=== PATIENT | female | born 1995 | race Caucasian/White ===

== ENCOUNTER 2018-12-25 14:05 | Emergency (ER) | payer OTHER ==
[2018-12-25 14:16] VITALS: BP 104/86
--- NOTE | 2018-12-25 15:02 | EDPHY ---
H & P Stated Complaint: left calf pain started yesterday, denies trauma, factor 5 hx Time Seen by Provider: 12/25/18 14:29 HPI/ROS: CHIEF COMPLAINT: Calf pain HISTORY OF PRESENT ILLNESS: Patient is a 23-year-old female who comes to the emergency department complaining of left-sided calf pain that began yesterday. She was concerned for DVT because she has history factor 5 Leiden deficiency. It runs in her family. She has never had DVTs before. No recent travel or injury. No visible swelling or bruising. She does notice some mild pain yesterday. She denies any injuries. No weakness or numbness. It is in left calf. Does not extend to her knee. Severity: Mild Modifying factors: Worsened by palpation or calf flexion REVIEW OF SYSTEMS: Constitutional: denies: chills, fever, recent illness, recent injury EENTM: denies: blurred vision, double vision, nose congestion Respiratory: denies: cough, shortness of breath Cardiac: denies: chest pain, irregular heart rate, lightheadedness, palpitations Gastrointestinal/Abdominal: denies: abdominal pain, diarrhea, nausea, vomiting, blood streaked stools Genitourinary: denies: dysuria, frequency, hematuria, pain Musculoskeletal: See HPI Skin: denies: lesions, rash, jaundice, bruising Neurological: denies: headache, numbness, paresthesia, tingling, dizziness, weakness Hematologic/Lymphatic: denies: blood clots, easy bleeding, easy bruising Immunologic/allergic: denies: HIV/AIDS, transplant 10 systems reviewed and negative except as noted EXAM: GENERAL: Well-appearing, well-nourished and in no acute distress. HEAD: Atraumatic, normocephalic. EYES: Pupils equal round and reactive to light, extraocular movements intact, sclera anicteric, conjunctiva are normal. ENT: TMs normal, nares patent, oropharynx clear without exudates. Moist mucous membranes. NECK: Normal range of motion, supple without lymphadenopathy or JVD. LUNGS: Breath sounds clear to auscultation bilaterally and equal. No wheezes rales or rhonchi. HEART: Regular rate and rhythm without murmurs, rubs or gallops. ABDOMEN: Soft, nontender, normoactive bowel sounds. No guarding, no rebound. No masses appreciated. BACK: No CVA tenderness, no spinal tenderness, step-offs or deformities EXTREMITIES: Left calf pain, no tenderness, no swelling, no swelling distally. Positive Homans NEUROLOGICAL: Cranial nerves II through XII grossly intact. Normal speech, normal gait. 5/5 strength, normal movement in all extremities, normal sensation , normal reflexes PSYCH: Normal mood, normal affect. SKIN: Warm, dry, normal turgor, no visible rashes or lesions. Source: Patient Exam Limitations: No limitations - Personal History LMP (Females 10-55): 22-28 Days Ago - Medical/Surgical History Hx Asthma: No Hx Chronic Respiratory Disease: No Hx Diabetes: No Hx Cardiac Disease: No Hx Renal Disease: No Hx Cirrhosis: No Hx Alcoholism: No Hx HIV/AIDS: No Hx Splenectomy or Spleen Trauma: No Other PMH: factor V blood disorder - Family History Significant Family History: No pertinent family hx - Social History Smoking Status: Never smoked Alcohol Use: None Constitutional: Initial Vital Signs Temperature (C) 36.3 C 12/25/18 14:14 Heart Rate 67 12/25/18 14:14 Respiratory Rate 18 12/25/18 14:14 Blood Pressure 104/86 H 12/25/18 14:14 O2 Sat (%) 98 12/25/18 14:14 O2 Delivery Mode Room Air Allergies/Adverse Reactions: Sulfa (Sulfonamide Antibiotics) Allergy (Verified 12/25/18 14:14) Home Medications: Medication Instructions Recorded Starke Carbonate 12/25/18 Wellbutrin Xl 12/25/18 Medical Decision Making - Diagnostics Imaging Results: Imaging Impressions Extremity Venous Study 12/25/18 14:18 Impression: There is no sonographic evidence of deep or superficial vein thrombosis in the left lower extremity. Findings were discussed with KUSH LOMAX MD at 14:49, on 12/25/2018. Imaging: Discussed imaging studies w/ finished garment inspector Radiologist ED Course/Re-evaluation: We discussed the patient's ultrasound results. She we discussed the patient's ultrasound results. She is relieved. We discussed other potential sources of pain. We discussed indications for returning. She feels comfortable with this. Differential Diagnosis: Partial list of the Differential diagnosis considered include but were not limited to; muscle strain, contusion, DVT, thrombophlebitis and although unlikely based on the history and physical exam, I also considered infection, fracture, neuropathy. I discussed these differential diagnoses and the plan with the patient as well as the usual and expected course. The patient understands that the diagnosis is provisional and that in medicine we are not always correct and that further workup is often warranted. Usual and customary warnings were given. All of the patient's questions were answered. The patient was instructed to return to the emergency department should the symptoms at all worsen or return, otherwise to followup with the physician as we discussed. Departure - Departure Disposition: Home, Routine, Self-Care Clinical Impression: Pain of left calf Condition: Fair Instructions: Leg Pain (ED) Referrals: Nat Cowan DO [Primary Care Provider] - As per Instructions
== END 2018-12-25 15:04 | disposition home or self-care (01) ==
LOC: CED 14:05
DX: M79.662 Pain in left lower leg (principal); D68.2 Hereditary deficiency of other clotting factors
CPT/HCPCS: 93971-PO; 99284-ER